=== PATIENT | female | born 1990 | race Caucasian/White ===

== ENCOUNTER 2023-06-02 18:47 | Emergency (ER) | payer OTHER, SELFPAY ==
[2023-06-02 18:53] VITALS: BP 116/73; PULSE 92; RESP 16; TEMP 37.1; O2SAT 100
--- NOTE | 2023-06-02 18:57 | ED.GENADULT ---
HPI - General Adult General Chief complaint: Upper Respiratory Infection Stated complaint: Cold Symptoms Time Seen by Provider: 06/02/23 18:57 Source: patient Mode of arrival: ambulatory Limitations: no limitations History of Present Illness HPI narrative: 32-year-old female patient presents to the [facility] with complaints of sinus pressure, nasal congestion postnasal drip for the past 4-5 days. Patient states sinus symptoms started about a week ago. Patient states she recently moved here from [facility] and did have allergy issues while in [place] and has taken allergy shots before the past. Patient denies taking any [id number] medication for symptoms prior to arrival today. Patient denies fevers body aches or chills. Denies any coughing chest shortness breath Related Data Allergies Allergy/AdvReac Type Severity Reaction Status Date / Time amoxicillin Allergy Hives Verified 12/19/22 11:11 Review of Systems Review of Systems: CONSTITUTIONAL: Denies fever, chills, or sweats. EYES: Denies visual changes, redness, or discharge. ENT: positive rhinorrhea, congestion, denies sore throat, or otalgia. CARDIOVASCULAR: Denies chest pain, palpitations, or edema. RESPIRATORY: Denies cough or dyspnea. GASTROINTESTINAL: Denies abdominal pain, nausea, vomiting, or diarrhea. GENITOURINARY: Denies dysuria or hematuria. SKIN: Denies rash or itching. MUSCULOSKELETAL: Denies back pain, joint pain, or myalgia. NEUROLOGIC: Denies headache, numbness, or weakness. PSYCHIATRIC: Denies anxiety or depression. [facility] Past Medical History Medical History Allergies History of PCOS Family History Family History Grandparent Throat cancer Diabetes mellitus Heart disease Social History Social History Smoking status: Never smoker Alcohol intake: current Alcohol use details: rarely Substance use type: does not use Lack of Transportation: No Lack of Food: Never True Current Housing: I Have Housing Concerned About Future Housing: No Difficulty Paying Gas/Electric Bills: No Difficulty Paying for Meds: No Currently Unemployed: No Education: Bachelor's Degree Difficulty w/ Childcare or Family Care: No Comments At the time of my signature I agree with nursing past medical history, surgical, social, and family history. There is no relevant family history pertinent to the presenting complaint. Exam Narrative: GENERAL: Well-appearing, well-nourished, and in no acute distress. HEAD: Normocephalic, atraumatic. EYES: PERRLA and EOMI. ENT: Nares with erythema and edema noted bilaterallyr, no rhinorrhea or epistaxis. Mucous membranes moist. postnasal drip noted to posterior pharynx. Bilateral TMs do appear to have some little bit of fluid behind them but no erythema no foreign bodies canal. NECK: Supple. No lymphadenopathy CHEST: Clear to auscultation. No respiratory distress. HEART: Regular rate and rhythm. No murmur heard. Normal peripheral pulses. ABDOMEN: Soft, nontender, nondistended, normal active bowel sounds. EXTREMITIES: Normal range of motion. No edema. SKIN: Warm, dry, no rash. NEURO: No focal deficits. Alert and oriented x3. Course Course Level of Care: Express Care Visit Vital Signs Vital signs: Vital Signs Temperature 37.1 C 06/02/23 18:53 Pulse Rate 92 06/02/23 18:53 Respiratory Rate 16 06/02/23 18:53 Blood Pressure 116/73 06/02/23 18:53 Pulse Oximetry 100 06/02/23 18:53 Temperature 37.1 C 06/02/23 18:53 Pulse Rate 92 06/02/23 18:53 Respiratory Rate 16 06/02/23 18:53 Blood Pressure 116/73 06/02/23 18:53 Pulse Oximetry 100 06/02/23 18:53 vital signs reviewed. Medical Decision Making MDM Narrative Medical decision making narrative: Discussed with patient that I would highly
== END 2023-06-02 19:16 | disposition home or self-care (01) ==
PROVIDERS: Emergency Provider Nurse Practitioner Family
DX: J30.9 Allergic rhinitis, unspecified (principal); J01.90 Acute sinusitis, unspecified; E28.2 Polycystic ovarian syndrome
CPT/HCPCS: 99211; G0463

== ENCOUNTER 2024-01-18 08:43 | Outpatient (CLI) | payer OTHER, SELFPAY ==
[2024-01-18 13:50] LABS: Basophils Percent Auto 0.3 % (0.2-1.2); Eosinophils Absolute Auto 0.2 K/mm3 (0-0.3); Eosinophils Percent Auto 1.9 % (0-4.4); Hematocrit 41.8 % (37.0-47.0); Immature Granulocyte Absolute 0.03 K/mm3 (0.00-0.031); Immature Granulocyte Percent A 0.3 % (0-0.5); Lymphocytes Absolute Auto 1.66 K/mm3 (0.9-3.2); Lymphocytes Percent Auto 17.5 % (18.3-44.2); Mean Corpuscular HGB Conc 31.1 g/dl (32-36); Mean Corpuscular Hemoglobin 28.4 pg (26-34); Mean Corpuscular Volume 91.3 fl (80-100); Mean Platelet Volume 9.7 fl (7.4-10.4); Monocytes Absolute Auto 0.8 K/mm3 (0.1-0.6); Monocytes Percent Auto 8.7 % (2.6-8.5); Neutrophils Absolute Auto 6.7 K/mm3 (1.3-6.7); Neutrophils Percent Auto 71.3 % (45.5-73.1); Platelet Count Result 241 k/mm3 (150-375); Red Blood Count 4.58 M/mm3 (4.2-5.4); Red Cell Distribution Width 13.3 % (11.5-14.5); White Blood Count 9.5 K/mm3 (4.5-10.0)
[2024-01-18 14:03] LABS: Alanine Aminotransferase 20 U/L (6-35); Alkaline Phosphatase 57 U/L (38-126); Anion Gap 4 mmol/L (4-12); Aspartate Amino Transferase 48 U/L (14-36); Bilirubin,Total 0.3 mg/dL (0.2-1.3); Blood Urea Nitrogen 11 mg/dL (7-17); Calcium 9.1 mg/dL (8.4-10.2); Carbon Dioxide 27 mmol/L (22-30); Chloride 109 mmol/L (98-107); Cholesterol 196 mg/dL (0-200); Estimated Glomerular Filt Rate > 60; Glucose 81 mg/dL (65-110); HDL Direct 47 mg/dL; Potassium 4.4 mmol/L (3.4-5.0); Sodium 140 mmol/L (137-145); Triglycerides 84 mg/dL (<150)
[2024-01-18 14:13] LABS: LDL Cholesterol Direct 122 mg/dL
[2024-01-18 14:27] LABS: Vitamin D 25 Hydroxy 40.3 ng/mL
== END 2024-01-18 08:44 | disposition home or self-care (01) ==
LOC: ANHGOSHLAB 08:44
PROVIDERS: PCP Internal Medicine; Visit Provider Nurse Practitioner
DX: R00.2 Palpitations (principal); E55.9 Vitamin D deficiency, unspecified; Z13.220 Encounter for screening for lipoid disorders
CPT/HCPCS: 36415; 80053; 80061; 82306; 84443; 85025

== ENCOUNTER 2024-01-28 10:30 | Outpatient (CLI) | payer OTHER, SELFPAY | END 2024-01-28 10:31 | disposition home or self-care (01) | LOC: ANHCARD 10:32 | PROVIDERS: PCP Internal Medicine; Visit Provider Nurse Practitioner | DX: R00.2 Palpitations (principal) | CPT/HCPCS: 93242 ==

== ENCOUNTER 2024-05-06 07:39 | Outpatient (CLI) | payer BC, SELFPAY ==
--- NOTE | 2024-05-26 10:12 | WPDHOMESLEEP ---
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 She has a history of paroxysmal of supraventricular tachycardia. She does not report difficulty sleep breathing while she sleeps on her back. She does not have morning headaches. She does awaken with a sore throat and a dry mouth. She does not have nocturnal heart burn or nocturia. She has been diagnosed with atrial fibrillation, does not have hypertension or heart failure. She has no difficulty getting to sleep or staying asleep. She does not have muscle weakness with strong emotion, vivid dreams on falling asleep or upon awakening or dreams during daytime naps. She does not clench her teeth are grind her teeth at night. She does not kick excessively or have uncomfortable feelings in her legs in the evening. She does not indicate that she has drowsy driving. Normal bedtime on work days is 11:00 p.m., falling asleep within 15 minutes, spending 8 hours in bed, 8 hours of sleep. On days off bedtime is the same but she spends 9 hours in bed. She does take planned naps on days off. Naps occur in the afternoon lasting less than 1 hour and naps maybe restorative. Habits: Patient does not indicate tobacco use, caffeine use, or alcohol use. [facility] Past Medical History Medical History (Updated 05/26/24 @ 10:23 by Manda Gamble MD) Arrhythmia History of PCOS Allergies Family History Family History Grandparent Throat cancer Diabetes mellitus Heart disease Social History Social History Smoking status: Never smoker Alcohol intake: current Alcohol use details: rarely Substance use type: does not use Lack of Transportation: No Lack of Food: Never True Current Housing: I Have Housing Concerned About Future Housing: No Difficulty Paying Gas/Electric Bills: No Difficulty Paying for Meds: No Currently Unemployed: No Education: Bachelor's Degree Difficulty w/ Childcare or Family Care: No Medications Home Medications ?Medication ?Instructions ?Recorded ?Confirmed ?Type fluticasone propionate 50 1 spray intranasal BID PRN allergy 06/06/23 05/15/24 Rx mcg/actuation nasal symptoms #16 grams spray,suspension (Flonase Allergy Relief) cetirizine 10 mg tablet (Zyrtec) 10 mg PO DAILY PRN allergy 06/28/23 05/15/24 Rx symptoms #90 tabs norgestimate 0.18 mg/0.215mg/0.25 1 tablet PO DAILY #84 tabs 12/24/23 05/15/24 Rx mg-ethinyl estradiol 0.025 mg tablet (Wsk-Om-Lfgihf) ondansetron HCl 4 mg tablet 4 mg PO DAILY PRN nausea and 05/15/24 05/15/24 Rx vomiting #20 tabs Sleep Procedure The sleep study was completed using [employer] a technically adequate device with seven channels: peripheral arterial tone, actigraphy, body position, snore, respiratory movement, pulse oximetry, sleep staging, and heart rate. Prior to using the device, the patient received verbal and written instructions for its application and was provided with the help desk phone number for additional telephonic instruction with 24-hour availability of qualified personnel to answer questions. Sleep Architecture The total recording time is 9 hrs, 7 min. The total sleep time is 8 hrs, 34 min. Sleep latency is 19 minutes. REM latency is 46 minutes. The patient had 4 episodes of waking. Sleep architecture shows 19.8% deep sleep, 45.6% light sleep, and 34.6% stage REM. The patient spent 42.7% of total sleep time in the supine position. Sleep efficiency was 93%. Respiratory Analysis The overall AHI (pAHI 3%:) is 9.7. The central AHI is 0.5. The AHI was 10.0 in NREM and 9.1 in REM sleep. The AHI was 19.7 in Supine and 2.1 in Non-supine sleep. Percent of Marc Schaefer respirations is 0.0. Oximetry Data The oxygen desaturation index (AVNI 4%:) is 2.8. The mean saturation is 96%, and the lowest saturation is 92%. Time spent with saturation < 88% is 0.0 minutes. Snoring Profile Snoring average intensity is 44 dB. The patient snored above 45 decibels for 132.0 minutes, 25.7% of sleep time. Cardiac Profile The average pulse rate is 74 beats per minutes. The lowest pulse rate is 57 bpm. The highest pulse rate is 113 bpm. Cardiac rhythm analysis did not detect atrial fibrillation. Assessment and Plan Assessment and Plan (1) Obstructive sleep apnea: Code(s): G47.33 - Obstructive sleep apnea (adult) (pediatric) Status: Acute Assessment and Plan: This home sleep test on 05/06/2024 shows mild obstructive sleep apnea, apnea hypopnea index 9.7, using a 3% criteria, with loud snoring and a minimum saturaiton of 92%. The patient has cardiac arrhythmias and with this comorbidity is a candidate for treatment. I recommend that this patient be prescribed Resmed AirSense 11 AutoPAP 5-15 cm H2O, CPAP mask/filters/tubing and humidifier chamber. This should be used with all episodes of sleep. Compliance should be reviewed within 31-90 days of starting therapy for usage greater than 4 hours per night greater than 70% of the nights. The patient should be asked about symptoms such as excessive daytime sleepiness, quality of sleep, decreased nocturia, increased mental functioning such as memory, mood, and concentration. If she fails to respond to auto PAP, patient should have a CPAP titration in the sleep lab. Data The data obtained during this sleep study is adequate for interpretation. Certification This sleep study has been reviewed by a board certified sleep medicine physician.
[2024-05-26 10:16] VITALS: BMI 20.7
== END 2024-05-07 12:08 | disposition home or self-care (01) ==
LOC: ANHCSM 07:40
PROVIDERS: PCP Internal Medicine; Visit Provider Internal Medicine Cardiovascular Disease
DX: G47.10 Hypersomnia, unspecified (principal); G47.33 Obstructive sleep apnea (adult) (pediatric)
CPT/HCPCS: 95800

== ENCOUNTER 2024-07-06 10:32 | Emergency (ER) | payer BC, SELFPAY ==
--- NOTE | 2024-07-06 10:33 | ED.FEMALEGU ---
HPI - Female Genitourinary General Chief complaint: Urogenital-Female Stated complaint: VAGINAL BURNING Time Seen by Provider: 07/06/24 10:33 Source: patient Mode of arrival: ambulatory Limitations: no limitations History of Present Illness HPI Narrative: Ya is a 33-year-old female patient presenting to the clinic today with complaints of vaginal burning and UTI symptoms times 2-3 days. She reports she stayed over at a friend's house and use some Andre paper and is typically irritates her vaginal area. She reports no changes in soaps, shampoos, or detergents. No new sexual partners. Denies any concern for sexually transmitted infection. Denies any vaginal discharge or odor. Related Data Allergies Allergy/AdvReac Type Severity Reaction Status Date / Time amoxicillin Allergy Hives Verified 07/06/24 10:45 Review of Systems Review of Systems: Pertinent positives per HPI. Patient denies any fever, chills, rash, headache, visual changes, dizziness, cough, runny nose, sore throat, shortness of breath, chest pain, palpitations, nausea, vomiting, diarrhea, constipation, abdominal pain, or any urinary issues. PMFSH Past Medical History Medical History Arrhythmia History of PCOS Allergies Family History Family History Grandparent Throat cancer Diabetes mellitus Heart disease Social History Social History Smoking status: Never smoker Alcohol intake: current Alcohol use details: rarely Substance use type: does not use Lack of Transportation: No Lack of Food: Never True Current Housing: I Have Housing Concerned About Future Housing: No Difficulty Paying Gas/Electric Bills: No Difficulty Paying for Meds: No Currently Unemployed: No Education: Bachelor's Degree Difficulty w/ Childcare or Family Care: No Comments At the time of my signature, I reviewed and agree with the nursing past medical, surgical, social, and family history. There is no relevant family history pertinent to the patient complaint. Exam Narrative: General: Well-developed, well nourished, in no apparent distress Head: Normocephalic, atraumatic. Cardio: Regular rate and rhythm, s1 and s2 normal, no murmur appreciated. Resp: Clear to auscultation bilaterally, no rhonchi, rales, wheezing or rubs. Abdomen: Soft, pliable, bowel sounds present in all quadrants, non-tender to palpation, no CVAT tenderness. : Pelvic exam performed with (Akash SANCHEZ) at bedside. Verbal consent obtained from patient. Excoriated external female genitalia with open tender sores to the left mid labia majora, no mass Urinary meatus: patent without discharge, Vagina: White thick vaginal discharge coming from the vaginal os. Swabs obtained from vagina Deferred pelvic exam with speculum due to pain erythema of the vaginal area Course Course Emergency Course: Portions of this record may have been created with voice recognition software. Level of Care: Express Care Visit Vital Signs Vital signs: Vital Signs Temperature 36.8 C 07/06/24 10:47 Pulse Rate 109 H 07/06/24 10:47 Respiratory Rate 16 07/06/24 10:47 Blood Pressure 148/79 H 07/06/24 10:47 Pulse Oximetry 100 07/06/24 10:47 Temperature 36.8 C 07/06/24 10:47 Pulse Rate 109 H 07/06/24 10:47 Respiratory Rate 16 07/06/24 10:47 Blood Pressure 148/79 H 07/06/24 10:47 Pulse Oximetry 100 07/06/24 10:47 Vital signs reviewed MDM - Female Genitourinary MDM Narrative Medical decision making narrative: At the time of visit patient is resting comfortably on the exam table. Patient appears to be nontoxic. Labs: Urinalysis positive for leukocytes, protein, and blood. We will send urine for culture. Genital culture, Trichomonas, gonorrhea, chlamydia, and BV testing was sent to the lab Plan: I suspect patient has UTI/vaginal discharge with vulva discomfort. Prescription for Bactrim and Diflucan was sent to the pharmacy. Will wait for other testing at this time. Supportive measures were discussed with the patient and they voiced understanding discharge instructions and agrees to treatment plan. Return precautions reviewed Differential Diagnosis Differential diagnosis: Likely urinary tract infection, bacterial vaginosis, trichomoniasis, cervicitis, ovarian cyst, vaginitis, cystitis and dysmenorrhea Lab Data Labs: Lab Results 07/06/24 07/06/24 07/06/24 Range/Units 11:06 11:20 11:21 POC Urine Color Light/pale POC Urine Clarity Cloudy POC Urine pH 6.0 POC Ur Specif [place] 1.025 POC Urine Protein 1+ (Negative) POC Ur Glucose (UA) Negative (Negative) POC Urine Ketones Negative (Negative) POC Urine Blood 1+ (Negative) POC Urine Nitrite Negative (Negative) POC Urine Bilirubin Negative (Negative) POC Urine Urobilinogen 0.2 POC U Leukocyte Esteras 1+ (Negative) Herpes Virus Source Pending Herpes Simplex Culture Pending Bact Vaginosis Panel Pending Discharge Plan Discharge Clinical Impression: Vaginitis Patient Disposition: Home Condition: Stable Additional Instructions: Urinalysis positive for blood, protein, and leukocytes. This possibly may be contaminant. Will send for culture. Prescription for Bactrim and Diflucan was sent to the pharmacy Testing was sent for BV, herpes, and genital culture. Avoid any sexual activity- includes oral, anal, or vaginal intercourse until you get results back and have completed any additional recommended treatment regimens. Results typically can take 7-10 days to come back. Occasionally it may be longer depending on [facility] labs as this testing [place] of [place]. We will contact you if testing is positive and make sure your treatment was appropriate for the type of STI. If symptoms worsen after treatment recommend reevaluation with your PCP or Express care. Patient Language: Syrian Prescriptions: No Action norgestimate-ethinyl estradiol [Cyc-Of-Mkestv] 0.18/0.215/0.25 mg-25 mcg tablet 1 tablet PO DAILY Qty: 84 4RF Follow-up/Referrals: April June, [facility] [employer] [Primary Care Provider] - Time of Disposition: 12:00 Quality NIHSS Nursing Documentation ED NIHSS nursing documentation: reviewed/agree
[2024-07-06 10:47] VITALS: BP 148/79; PULSE 109; RESP 16; TEMP 36.8; O2SAT 100
[2024-07-06 11:09] LABS: EDUAAPPEAR Cloudy; EDUABILI Negative (Negative); EDUABLOOD 1+ (Negative); EDUACOLOR1 Light/Pale; EDUAGLUCOSE Negative (Negative); EDUAKETONE Negative (Negative); EDUALEUKO 1+ (Negative); EDUANITRATE Negative (Negative); EDUAPROTEIN 1+ (Negative); EDUASPGRAVITY 1.025; EDUAUROBILI 0.2
--- NOTE | 2024-07-06 12:00 | PC.NURSE ---
1130 Pelvic exam completed by provider, specimens collected.
[2024-07-08 14:01] LABS: Bacterial Vaginosis NEGATIVE
[2024-07-10 15:23] LABS: Source NOT GIVEN
== END 2024-07-06 11:45 | disposition home or self-care (01) ==
PROVIDERS: Emergency Provider Nurse Practitioner Family; PCP Nurse Practitioner
DX: N76.0 Acute vaginitis (principal); E28.2 Polycystic ovarian syndrome
CPT/HCPCS: 81003; 81513; 87070; 87086; 87140; 87255; 99213; G0463